=== PATIENT | male | born 1965 | race Caucasian/White ===

== ENCOUNTER 2022-06-22 07:45 | Observation (INO) ==
[2022-06-22] MEDS ORDERED: 0.9 % Sodium Chloride 1,000 ML IVC ONE (07:53)
[2022-06-22] MEDS ORDERED: Ondansetron 4 MG/2 ML VIAL IVP ONE (07:59)
[2022-06-22] MEDS ORDERED: Morphine Sulfate 2 MG/ML SYRINGE IVP ONE (08:00)
[2022-06-22] MEDS ORDERED: Iopamidol - 370 500 ML MLS IVP ONE (08:00)
[2022-06-22 09:16] LABS: Bilirubin,Urine Negative (Negative); Blood,Urine Negative (Negative); Clarity,Urine Clear (Clear); Color,Urine Yellow (Yellow); Glucose,Urine (UA) Normal (Normal); Hyaline Casts,Urine Few per lpf (None Seen); Ketones,Urine 20 mg/dL (Negative); Leukocyte Esterase,Urine Negative (Negative); Mucus,Urine Few per lpf (None-Few); Nitrite,Urine Negative (Negative); Protein,Urine 30 mg/dL (Neg-Trace); RBC,Urine 0-3 per hpf (0-3); Specific Gravity,Urine 1.018 (1.010-1.025); Squamous Epithelial Cell,Urine Few per hpf (None-Few); Urobilinogen,Urine Normal (Normal); WBC,Urine 0-3 per hpf (0-3)
[2022-06-22 09:41] LABS: Basophils % 0.1 %; Eosinophils # 0.1 K/mcL (0.0-0.6); Eosinophils % 0.6 %; Hematocrit 37.1 % (37.5-50.1); Hemoglobin 12.5 g/dL (12.9-16.9); Immature Granulocytes % 0.6 % (0-4); Lymphocytes # 1.5 K/mcL (0.6-4.6); Lymphocytes % 14.7 %; Mean Corpuscular HGB Conc 33.7 g/dL (31.6-35.5); Mean Corpuscular Volume 86.1 fL (83.0-100.0); Mean Platelet Volume 9.8 fL (9.4-12.4); Monocytes # 0.4 K/mcL (0.0-1.3); Monocytes % 3.6 %; Neutrophils # 8.2 K/mcL (1.6-8.9); Platelet Count 125 K/mcL (140-400); Red Blood Count 4.31 M/mcL (4.19-5.50); Red Cell Distribution Width 16.5 % (11.5-14.5); Segmented Neutrophils % 80.4 %; White Blood Count 10.2 K/mcL (4.3-11.1)
[2022-06-22 09:42] LABS: Influenza A PCR Negative (Negative); Influenza B PCR Negative (Negative); Resp. Syncytial Virus PCR Negative (Negative)
[2022-06-22 09:43] LABS: SARS-CoV-2 by PCR (In House) Negative (Negative)
[2022-06-22 10:00] LABS: Alanine Aminotransferase 244 Units/L (7-52); Albumin 3.5 g/dL (3.5-5.7); Albumin/Globulin Ratio 1.6 (1.1-2.2); Alkaline Phosphatase 160 Units/L (34-104); Amylase 18 Units/L (29-103); Aspartate Amino Transferase 38 Units/L (13-39); BUN/Creatinine Ratio 10 (6-26); Bilirubin,Total 1.6 mg/dL (0.3-1.0); Blood Urea Nitrogen 7 mg/dL (6-20); Calcium 8.1 mg/dL (8.6-10.3); Carbon Dioxide 27 mEq/L (23-29); Chloride 98 mEq/L (98-107); Globulin 2.2 g/dL (2.4-3.5); Glucose 119 mg/dL (70-105); Lipase 31 Units/L (11-82); Osmolality,Calculated 275 (280-300); Potassium 3.3 mEq/L (3.5-5.1); Sodium 133 mEq/L (136-145); Total Protein 5.7 g/dL (6.4-8.9); Troponin I < 0.03 ng/mL (< 0.04)
[2022-06-22] MEDS ORDERED: *HR* HYDROmorphone (PF) 1 MG/ML SYRINGE IVP ONE (10:46)
[2022-06-22] MEDS ORDERED: Ondansetron 4 MG/2 ML VIAL IVP PRN (11:18)
[2022-06-22] MEDS ORDERED: Naloxone 0.4 MG/ML INJ IVP PRN (11:18)
[2022-06-22] MEDS ORDERED: *HR* HYDROmorphone (PF) 1 MG/ML SYRINGE IVP PRN (11:21)
[2022-06-22] MEDS ORDERED: *HR* Dextrose 50 % in Water (Syg) 50 ML SYRINGE IVP PRN (11:22)
[2022-06-22] MEDS ORDERED: D5% in Water 1,000 ML IVC PRN (11:22)
[2022-06-22] MEDS ORDERED: Dextrose Gel 15 GM/37.5 ML TUBE PO PRN ×2 (11:22)
[2022-06-22] MEDS ORDERED: 0.9 % Sodium Chloride 1,000 ML IVC SCH (11:30)
[2022-06-22 11:41] LABS: Magnesium 1.8 mg/dL (1.6-2.6); Phosphorous 2.1 mg/dL (2.7-4.5)
[2022-06-22 11:42] LABS: INR 1.4; Prothrombin Time 15.2 Seconds (9.4-12.1)
[2022-06-22 11:45] LABS: Activated Partial Thrombo Time 31.9 Seconds (26.0-36.0)
[2022-06-22 11:47] LABS: Chol/HDL Ratio 2.6 (0-4.9); Cholesterol 127 mg/dL (< 200); HDL Cholesterol 48 mg/dL (40-59); LDL Cholesterol,Calculated 62 mg/dL (< 100); Triglycerides 87 mg/dL (< 150)
[2022-06-22] MEDS: 0.9 % Sodium Chloride 1,000 ML IVC SCH ×2 (12:47→21:16)
[2022-06-22] MEDS: *HR* HYDROmorphone (PF) 1 MG/ML SYRINGE IVP PRN ×2 (17:14→21:16)
[2022-06-23] MEDS: *HR* HYDROmorphone (PF) 1 MG/ML SYRINGE IVP PRN ×3 (01:35→09:31)
[2022-06-23] MEDS: 0.9 % Sodium Chloride 1,000 ML IVC SCH ×3 (01:37→17:03)
[2022-06-23 02:50] LABS: Basophils % 0.1 %; Eosinophils # 0.1 K/mcL (0.0-0.6); Eosinophils % 0.9 %; Hemoglobin 11.4 g/dL (12.9-16.9); Immature Granulocytes % 0.6 % (0-4); Lymphocytes # 0.9 K/mcL (0.6-4.6); Lymphocytes % 10.4 %; Mean Corpuscular HGB Conc 33.5 g/dL (31.6-35.5); Mean Corpuscular Volume 86.5 fL (83.0-100.0); Mean Platelet Volume 10.3 fL (9.4-12.4); Monocytes # 0.4 K/mcL (0.0-1.3); Monocytes % 4.4 %; Neutrophils # 7.2 K/mcL (1.6-8.9); Platelet Count 121 K/mcL (140-400); Red Blood Count 3.93 M/mcL (4.19-5.50); Red Cell Distribution Width 16.4 % (11.5-14.5); Segmented Neutrophils % 83.6 %; White Blood Count 8.6 K/mcL (4.3-11.1)
[2022-06-23 03:14] LABS: Alanine Aminotransferase 152 Units/L (7-52); Albumin 3.1 g/dL (3.5-5.7); Albumin/Globulin Ratio 1.5 (1.1-2.2); Alkaline Phosphatase 126 Units/L (34-104); Aspartate Amino Transferase 18 Units/L (13-39); BUN/Creatinine Ratio 13 (6-26); Bilirubin,Total 1.3 mg/dL (0.3-1.0); Blood Urea Nitrogen 7 mg/dL (6-20); Calcium 7.4 mg/dL (8.6-10.3); Carbon Dioxide 23 mEq/L (23-29); Chloride 103 mEq/L (98-107); Globulin 2.1 g/dL (2.4-3.5); Glucose 99 mg/dL (70-105); Osmolality,Calculated 276 (280-300); Potassium 3.1 mEq/L (3.5-5.1); Sodium 134 mEq/L (136-145); Total Protein 5.2 g/dL (6.4-8.9)
[2022-06-23] MEDS: Pantoprazole 40 MG VIAL IVP SCH (09:31)
[2022-06-23] MEDS: Aspirin Enteric Coated 81 MG Tablet PO SCH (09:32)
[2022-06-23] MEDS: Morphine Sulfate ER (12 HR) 15 MG TABLET.ER PO SCH (09:32)
[2022-06-23] MEDS: Acyclovir 200 MG CAPSULE PO SCH ×2 (09:32→20:22)
[2022-06-23] MEDS ORDERED: *HR* HYDROmorphone 2 MG/ML SYRINGE IVP PRN (11:49)
[2022-06-23] MEDS: *HR* HYDROmorphone 2 MG/ML SYRINGE IVP PRN ×3 (15:00→21:15)
[2022-06-23] MEDS: allopurinoL 300 MG TABLET PO SCH (15:01)
[2022-06-23] MEDS: *HR* Heparin 5,000 UNIT/ML VIAL SQ SCH (17:03)
[2022-06-23] MEDS: Sennosides/Docusate Sodium TABLET PO SCH (20:22)
[2022-06-24] MEDS: *HR* HYDROmorphone 2 MG/ML SYRINGE IVP PRN ×5 (00:22→13:28)
[2022-06-24] MEDS: 0.9 % Sodium Chloride 1,000 ML IVC SCH ×5 (00:23→19:07)
[2022-06-24 04:47] LABS: Basophils % 0.2 %; Eosinophils # 0.1 K/mcL (0.0-0.6); Eosinophils % 1.4 %; Hematocrit 31.5 % (37.5-50.1); Hemoglobin 10.2 g/dL (12.9-16.9); Immature Granulocytes % 0.6 % (0-4); Lymphocytes % 15.9 %; Mean Corpuscular HGB Conc 32.4 g/dL (31.6-35.5); Mean Corpuscular Hemoglobin 28.3 pg (28.0-33.3); Mean Corpuscular Volume 87.5 fL (83.0-100.0); Mean Platelet Volume 9.8 fL (9.4-12.4); Monocytes # 0.3 K/mcL (0.0-1.3); Monocytes % 4.8 %; Neutrophils # 4.8 K/mcL (1.6-8.9); Platelet Count 139 K/mcL (140-400); Red Cell Distribution Width 16.3 % (11.5-14.5); Segmented Neutrophils % 77.1 %; White Blood Count 6.2 K/mcL (4.3-11.1)
[2022-06-24 05:10] LABS: Alanine Aminotransferase 92 Units/L (7-52); Albumin 2.9 g/dL (3.5-5.7); Albumin/Globulin Ratio 1.5 (1.1-2.2); Alkaline Phosphatase 106 Units/L (34-104); Aspartate Amino Transferase 10 Units/L (13-39); BUN/Creatinine Ratio 13 (6-26); Blood Urea Nitrogen 6 mg/dL (6-20); Calcium 7.2 mg/dL (8.6-10.3); Carbon Dioxide 23 mEq/L (23-29); Chloride 105 mEq/L (98-107); Glucose 75 mg/dL (70-105); Osmolality,Calculated 278 (280-300); Phosphorous 1.7 mg/dL (2.7-4.5); Potassium 2.9 mEq/L (3.5-5.1); Sodium 136 mEq/L (136-145); Total Protein 4.9 g/dL (6.4-8.9)
[2022-06-24] MEDS: *HR* Heparin 5,000 UNIT/ML VIAL SQ SCH ×2 (05:55→17:13)
[2022-06-24] MEDS: Acyclovir 200 MG CAPSULE PO SCH ×2 (07:44→20:19)
[2022-06-24] MEDS: Morphine Sulfate ER (12 HR) 15 MG TABLET.ER PO SCH ×2 (07:44→17:56)
[2022-06-24] MEDS: allopurinoL 300 MG TABLET PO SCH (07:45)
[2022-06-24] MEDS: Aspirin Enteric Coated 81 MG Tablet PO SCH (07:45)
[2022-06-24] MEDS: Sennosides/Docusate Sodium TABLET PO SCH ×2 (07:45→20:19)
[2022-06-24] MEDS: Pantoprazole 40 MG VIAL IVP SCH (07:45)
[2022-06-24] MEDS ORDERED: Potassium Phosphate 44 MEQ in 0.9 % Sodium Chloride 250 ML IVPB ONE (12:26)
[2022-06-24] MEDS ORDERED: *HR* OxyCODONE Immed Rel 15 MG TABLET PO PRN (17:21)
[2022-06-25] MEDS: 0.9 % Sodium Chloride 1,000 ML IVC SCH ×3 (01:54→13:58)
[2022-06-25 02:55] VITALS: O2SAT 97
[2022-06-25] MEDS: Morphine Sulfate ER (12 HR) 15 MG TABLET.ER PO SCH (06:01)
[2022-06-25] MEDS: *HR* Heparin 5,000 UNIT/ML VIAL SQ SCH ×2 (06:01→06:03)
[2022-06-25 06:43] LABS: Hematocrit 30.6 % (37.5-50.1); Hemoglobin 10.1 g/dL (12.9-16.9); Mean Corpuscular Hemoglobin 28.5 pg (28.0-33.3); Mean Corpuscular Volume 86.4 fL (83.0-100.0); Mean Platelet Volume 10.3 fL (9.4-12.4); Platelet Count 158 K/mcL (140-400); Red Blood Count 3.54 M/mcL (4.19-5.50); Red Cell Distribution Width 16.1 % (11.5-14.5); White Blood Count 5.4 K/mcL (4.3-11.1)
[2022-06-25 07:03] LABS: BUN/Creatinine Ratio 8 (6-26); Blood Urea Nitrogen 4 mg/dL (6-20); Calcium 7.4 mg/dL (8.6-10.3); Carbon Dioxide 22 mEq/L (23-29); Chloride 104 mEq/L (98-107); Glucose 75 mg/dL (70-105); Osmolality,Calculated 278 (280-300); Sodium 136 mEq/L (136-145)
[2022-06-25] MEDS: Pantoprazole 40 MG VIAL IVP SCH (08:15)
[2022-06-25] MEDS: allopurinoL 300 MG TABLET PO SCH (08:15)
[2022-06-25] MEDS: Sennosides/Docusate Sodium TABLET PO SCH (08:15)
[2022-06-25] MEDS: Aspirin Enteric Coated 81 MG Tablet PO SCH (08:15)
[2022-06-25] MEDS: Acyclovir 200 MG CAPSULE PO SCH (08:15)
[2022-06-25] MEDS ORDERED: Potassium Chloride Elixir 20 MEQ/15 ML UDC PO ONE (09:20)
[2022-06-25 10:51] VITALS: BP 166/91; PULSE 95; TEMP 99.1
== END 2022-06-25 14:02 | disposition home or self-care (01) ==
LOC: 3ANU 07:45 → EMEROOARM 07:45 → SUATTDRO 10:57 → 3ANU 12:06
PROVIDERS: ADMIT General Practice; ATTEND Registered Nurse